=== PATIENT | male | born 1995 | race Two or more races ===

== ENCOUNTER 2016-10-24 23:44 | Emergency (ER) | payer OTHER ==
[~2016-10-24] VITALS: Ht 172.7 cm; Wt 74.8 kg
[2016-10-24 23:44] VITALS: BP 116/75
== END 2016-10-25 01:02 ==
LOC: ER 23:48
DX: Z00.8 Encounter for other general examination (principal)
CPT/HCPCS: 71100-TC; 73110; A4606; Z7610